=== PATIENT | female | born 1990 | race American Indian/Alaskan Native ===

== ENCOUNTER 2018-01-11 15:20 | Emergency (ER) | payer MEDICAID ==
[2018-01-11] MEDS ORDERED: NACL 0.9% 500 ML 500 ML IV ONE (15:46)
[2018-01-11] MEDS ORDERED: TYLENOL PO STA (15:46)
[2018-01-11 16:12] LABS: Basophils # (Auto) 0.1 K/mm3 (0.0-0.1); Basophils % (Auto) 0.7 % (0.0-1.8); Eosinophils % (Auto) 0.2 % (0.0-4.3); Hematocrit 39.3 % (30.3-42.9); Hemoglobin 13.1 gm/dl (10.1-14.3); Lymphocytes # (Auto) 0.6 K/mm3 (1.2-5.4); Lymphocytes % (Auto) 3.3 % (13.4-35.0); Mean Corpuscular HGB Conc 33 % (30-34); Mean Corpuscular Hemoglobin 32 pg (28-32); Mean Corpuscular Volume 96 fl (79-97); Monocytes # (Auto) 1.1 K/mm3 (0.0-0.8); Monocytes % (Auto) 6.2 % (0.0-7.3); Platelet Count 244 K/mm3 (140-440); Red Blood Count 4.08 M/mm3 (3.65-5.03); Red Cell Distribution Width 12.4 % (13.2-15.2)
[2018-01-11 16:22] LABS: INR 1.03 (0.87-1.13)
[2018-01-11 16:28] LABS: Alanine Aminotransferase 10 units/L (7-56); BUN/Creatinine Ratio 10; Blood Urea Nitrogen 10 mg/dL (7-17); Calcium 9.1 mg/dL (8.4-10.2); Hemolysis Index 3
[2018-01-11] MEDS ORDERED: NACL 0.9% 1000 ML IV ONE (16:51)
--- NOTE | 2018-01-11 17:15 | Emergency Department Report ---
HPI - General Chief Complaint: Fever Time Seen by Provider: 01/11/18 16:51 - HPI HPI: Room 22 The patient is a 27-year-old female presents with a chief complaint of abdominal pain. The patient states 2 days ago she felt dizzy so she drank water and felt better. This morning patient states she developed right lower quadrant abdominal pain and continued to feel dizzy. The patient states she felt cold and couldn't eat secondary to loss of appetite. The patient describes the pain as cramping in nature and intermittent. Patient denies fever , diarrhea or cough. Patient denies dysuria, hematuria or vaginal discharge. The patient states her last cycle occurred 01/03/2018 but was shorter than normal Location: Abdomen Duration: [See above] Quality: Cramping Severity: 05/18 Modifying factors: [see above] Context: [see above] Mode of transportation: [not driving] ED Past Medical Hx - Past Medical History Previous Medical History?: Yes Additional medical history: Vaginal delivery x 2 - Surgical History Past Surgical History?: Yes Additional Surgical History: Ectopic 2014 (patient cannot recall which side) - Family History Family history: no significant - Social History Smoking Status: Current Every Day Smoker (1/7 per day) Substance Use Type: None (denies illicit drug use), Alcohol (occasional) - Medications Home Medications: Home Medications Medication Instructions Recorded Confirmed Last Taken Type Ciprofloxacin HCl [Ciprofloxacin 500 mg PO BID #20 tablet 01/11/18 Unknown Rx TAB] HYDROcodone/APAP 5-325 [[place] 1 - 2 each PO Q6HR PRN #14 tablet 01/11/18 Unknown Rx 5/325] Ibuprofen [Motrin 800 MG tab] 800 mg PO Q8HR PRN #20 tablet 01/11/18 Unknown Rx Promethazine [Phenergan TAB] 25 mg PO Q6HR PRN #20 tab 01/11/18 Unknown Rx Promethazine [Phenergan] 25 mg MI Q6HR PRN #5 supp.rect 01/11/18 Unknown Rx ED Review of Systems ROS: Stated complaint: FEELING ILL FOR X2 DAYS Other details as noted in HPI Constitutional: denies: fever (none noted at home) Eyes: denies: eye pain ENT: denies: throat pain Respiratory: denies: cough Cardiovascular: denies: chest pain Gastrointestinal: abdominal pain. denies: diarrhea Genitourinary: denies: dysuria, hematuria, discharge Musculoskeletal: denies: back pain Neurological: other (dizziness). denies: headache Physical Exam - Physical Exam Vital Signs: Vital Signs 01/11/18 01/11/18 01/11/18 15:41 16:10 16:24 Temperature 103.1 F H Pulse Rate 100 H 86 Respiratory 22 24 Rate Blood Pressure 149/93 151/92 O2 Sat by Pulse 96 100 98 Oximetry 01/11/18 01/11/18 16:36 16:54 Temperature 100.2 F H Pulse Rate Respiratory 20 Rate Blood Pressure O2 Sat by Pulse Oximetry Physical Exam: GENERAL: The patient is well-developed well-nourished female lying on stretcher not appearing to be in acute distress. [] HEENT: Normocephalic. Atraumatic. Extraocular motions are intact. Patient has moist mucous membranes. NECK: Supple. Trachea midline CHEST/LUNGS: Clear to auscultation. There is no respiratory distress noted. HEART/CARDIOVASCULAR: Regular. There is no tachycardia. There is no gallop rub or murmur. ABDOMEN: Abdomen is soft, with discomfort to palpation in the right lower quadrant. There is no guarding. Patient has normal bowel sounds. There is no abdominal distention. SKIN: There is no rash. There is no edema. There is no diaphoresis. NEURO: The patient is awake, alert, and oriented. The patient is cooperative. The patient has normal speech MUSCULOSKELETAL: There is no CVA tenderness. There is no evidence of acute injury. ED Course Vital Signs 01/11/18 01/11/18 01/11/18 15:41 16:10 16:24 Temperature 103.1 F H Pulse Rate 100 H 86 Respiratory 22 24 Rate Blood Pressure 149/93 151/92 O2 Sat by Pulse 96 100 98 Oximetry 01/11/18 01/11/18 16:36 16:54 Temperature 100.2 F H Pulse Rate Respiratory 20 Rate Blood Pressure O2 Sat by Pulse Oximetry ED Medical Decision Making - Lab Data Result diagrams: 01/11/18 16:02 01/11/18 16:02 Laboratory Tests 01/11/18 01/11/18 01/11/18 16:02 16:02 16:02 WBC 17.8 H RBC 4.08 Hgb 13.1 Hct 39.3 MCV 96 MCH 32 MCHC 33 RDW 12.4 L Plt Count 244 Lymph % (Auto) 3.3 L Avery % (Auto) 6.2 Eos % (Auto) 0.2 Baso % (Auto) 0.7 Lymph # 0.6 L Avery # 1.1 H Eos # 0.0 Baso # 0.1 Seg Neutrophils % 89.6 H Seg Neutrophils # 15.9 H PT 14.0 INR 1.03 VBG pH Sodium 140 Potassium 3.6 Chloride 101.7 Carbon Dioxide 22 Anion Gap 20 BUN 10 Creatinine 1.0 Estimated GFR > 60 BUN/Creatinine Ratio 10 Glucose 158 H Lactic Acid Calcium 9.1 Total Bilirubin 0.60 AST 11 ALT 10 Alkaline Phosphatase 86 Total Protein 7.3 Albumin 4.0 Albumin/Globulin Ratio 1.2 HCG, Qual Urine Color Urine Turbidity Urine pH Ur Specific [place] Urine Protein Urine Glucose (UA) Urine Ketones Urine Blood Urine Nitrite Urine Bilirubin Urine Urobilinogen Ur Leukocyte Esterase Urine WBC (Auto) Urine RBC (Auto) U Epithel Cells (Auto) Urine Bacteria (Auto) Urine WBC Clumps Ur Transition Epith Cell Urine Mucus 01/11/18 01/11/18 01/11/18 16:02 16:02 16:44 WBC RBC Hgb Hct MCV MCH MCHC RDW Plt Count Lymph % (Auto) Avery % (Auto) Eos % (Auto) Baso % (Auto) Lymph # Avery # Eos # Baso # Seg Neutrophils % Seg Neutrophils # PT INR VBG pH 7.424 H Sodium Potassium Chloride Carbon Dioxide Anion Gap BUN Creatinine Estimated GFR BUN/Creatinine Ratio Glucose Lactic Acid 2.10 H* Calcium Total Bilirubin AST ALT Alkaline Phosphatase Total Protein Albumin Albumin/Globulin Ratio HCG, Qual Negative Urine Color Urine Turbidity Urine pH Ur Specific [place] Urine Protein Urine Glucose (UA) Urine Ketones Urine Blood Urine Nitrite Urine Bilirubin Urine Urobilinogen Ur Leukocyte Esterase Urine WBC (Auto) Urine RBC (Auto) U Epithel Cells (Auto) Urine Bacteria (Auto) Urine WBC Clumps Ur Transition Epith Cell Urine Mucus 01/11/18 01/11/18 16:45 16:45 WBC RBC Hgb Hct MCV MCH MCHC RDW Plt Count Lymph % (Auto) A[place] % (Auto) Eos % (Auto) Baso % (Auto) Lymph # Avery # Eos # Baso # Seg Neutrophils % Seg Neutrophils # PT INR VBG pH Sodium Potassium Chloride Carbon Dioxide Anion Gap BUN Creatinine Estimated GFR BUN/Creatinine Ratio Glucose Lactic Acid 1.20 Calcium Total Bilirubin AST ALT Alkaline Phosphatase Total Protein Albumin Albumin/Globulin Ratio HCG, Qual Urine Color Yellow Urine Turbidity Clear Urine pH 5.0 Ur Specific [place] 1.017 Urine Protein 100 mg/dl Urine Glucose (UA) Neg Urine Ketones Neg Urine Blood Lg Urine Nitrite Neg Urine Bilirubin Neg Urine Urobilinogen 4.0 Ur Leukocyte Esterase Lg Urine WBC (Auto) > 182.0 H Urine RBC (Auto) 112.0 U Epithel Cells (Auto) 9.0 Urine Bacteria (Auto) 2+ Urine WBC Clumps 2+ Ur Transition Epith Cell 1 Urine Mucus Few - EKG Data -: EKG Interpreted by Me EKG shows normal: sinus rhythm Rate: normal (94 bpm) - EKG Data When compared to previous EKG there are: previous EKG unavailable Interpretation: nonspecific ST-T wave peg (T wave inverted in leads 2, 3, V3) - Radiology Data Radiology results: report reviewed (CT abdomen and pelvis), image reviewed ( chest x-ray, CT abdomen and pelvis) interpreted by me: Chest x-ray-no focal infiltrates, no pneumothorax CT abdomen and pelvis (read by radiologist)-findings which may represent nonspecific postinflammatory change in the right kidney, including pyelonephritis or UTI. Correlate clinically. Findings which may represent functional cystic change in the left ovary. - Differential Diagnosis cystitis, pyelonephritis, appendicitis, ectopic , Critical care attestation.: If time is entered above; I have spent that time in minutes in the direct care of this critically ill patient, excluding procedure time. ED Disposition Clinical Impression: Pyelonephritis, Acute abdominal pain, Nausea Disposition: DC-01 TO HOME OR SELFCARE Is pt being admited?: No Does the pt Need Aspirin: No Condition: Stable Instructions: Urinary Tract Infection in Women (ED) Additional Instructions: Return to the emergency department immediately should you develop worsening symptoms, fever, inability to tolerate food or liquid or any other concerns. Prescriptions: Ciprofloxacin HCl [Ciprofloxacin TAB] 500 mg PO BID #20 tablet HYDROcodone/APAP 5-325 [[place] 5/325] 1 - 2 each PO Q6HR PRN #14 tablet PRN Reason: Pain Ibuprofen [Motrin 800 MG tab] 800 mg PO Q8HR PRN #20 tablet PRN Reason: Pain Promethazine [Phenergan TAB] 25 mg PO Q6HR PRN #20 tab PRN Reason: Nausea Promethazine [Phenergan] 25 mg MI Q6HR PRN #5 supp.rect PRN Reason: Vomiting Referrals: LUIGI GIRARD JR, MD [Staff Physician] - 3-5 Days (Dr. Girard is a primary physician. Please follow with him or your primary physician for further evaluation) Time of Disposition: 19:35
[2018-01-11] MEDS ORDERED: ROCEPHIN/NS 1 GM/50 ML 1 GM/50 ML BAG IV ONE (17:16)
[2018-01-11] MEDS ORDERED: MORPHINE IV ONE (17:20)
[2018-01-11] MEDS ORDERED: ZOFRAN IV ONE (17:20)
[2018-01-11 17:34] LABS: Bacteria,Urine 2+ /HPF (Negative); Bilirubin,Urine NEG (Negative); Blood,Urine LG (Negative); Color,Urine Yellow (Yellow); Mucus,Urine FEW /HPF
[2018-01-11 17:49] LABS: WBC,Urine > 182.0 /HPF (0.0-6.0)
[2018-01-11] MEDS ORDERED: cefTRIAXone 1 GM in NACL 0.9% 20 ML IV ONE (18:00)
[2018-01-11 18:41] VITALS: BP 135/82
--- NOTE | 2018-01-11 20:56 | XRay Report ---
FINAL REPORT EXAM: XR CHEST 1V AP HISTORY: possible Sepsis TECHNIQUE: Frontal portable examination of the chest PRIORS: None FINDINGS: There is no visible pulmonary consolidation, pleural effusion, or pneumothorax. Cardiac silhouette size is normal without vascular congestion. No visible acute displaced fracture in the regional skeleton. IMPRESSION: No acute cardiopulmonary disease in the visualized chest
--- NOTE | 2018-01-11 20:58 | Cat Scan Report ---
FINAL REPORT EXAM: CT ABDOMEN PELVIS W CON HISTORY: fever, right lower quadrant abdominal pain TECHNIQUE: Spiral CT scanning of the abdomen and pelvis after the uneventful administration of IV contrast. Multiplanar reformations. 100 mL Omnipaque IV. PRIORS: None. FINDINGS: Abdomen: Visualized lung bases grossly unremarkable. No radiopaque gallstones. Liver without significant abnormality. Spleen without significant abnormality. Pancreas without significant abnormality. Mildly heterogeneous enhancement pattern and striated nephrogram in the right renal upper pole, with some perinephric fat stranding. Prominent or mild right extrarenal pelvis, with wall enhancement in the right renal pelvis and proximal ureter. Multiple prominent for mildly enlarged lymph nodes in the right renal hilar region and along right retroperitoneum may be reactive. Left kidney grossly unremarkable. No intrarenal calculi, significant hydronephrosis or abnormal perinephric fluid collection. Adrenal glands without significant abnormality. Pelvis: Bowel grossly unremarkable. Appendix within normal limits. No significant free peritoneal fluid or discrete abscess. Abdominal aorta non-aneurysmal. Cystic focus in the left ovary measures approximately 3 cm. IMPRESSION: 1. Findings which may represent nonspecific postinflammatory change in the right kidney, including pyelonephritis or UTI. Correlate clinically. 2. Findings which may represent functional cystic change in the left ovary.
== END 2018-01-11 19:48 | disposition home or self-care (01) ==
LOC: ED 15:20
DX: N12 Tubulo-interstitial nephritis, not specified as acute or chronic (principal); R11.0 Nausea; R10.31 Right lower quadrant pain; F17.210 Nicotine dependence, cigarettes, uncomplicated
CPT/HCPCS: 36415; 71045; 74177; 80053; 81001; 82140; 82805; 84703; 85025; 85610; 87040; 87076; 87086; 87186; 93005; 93010; 96361; 96365; 96375; 99285; J0696; J2270; J2405; J7030; J7040; Q9967

== ENCOUNTER 2020-08-23 08:54 | Day surgery (SDC) | payer MEDICAID ==
[~2020-08-23 08:54] MED LIST: ACETAMINOPHEN 500 MG TAB PO SCH; CELECOXIB 200 MG CAP PO NR; GABAPENTIN 300 MG CAP PO NR; LACTATED RINGERS 1,000 ML IV SCH; MIDAZOLAM 2 MG/2 ML INJ IV NR
[2020-08-23] MEDS ORDERED: HYDROmorphone 1 MG/1 ML INJ IV PRN (09:53)
[2020-08-23] MEDS ORDERED: ONDANSETRON 4 MG/2 ML INJ IV PRN (09:53)
--- NOTE | 2020-08-23 09:54 | Anesthesia Consultation ---
Anesthesia Consult and Med Hx Date of service: 08/23/20 - Airway Anesthetic Teeth Evaluation: Poor ROM Head & Neck: Adequate Mental/Hyoid Distance: Adequate Mallampati Class: Class II Intubation Access Assessment: Probably Good - Pulmonary Exam CTA: Yes - Cardiac Exam Cardiac Exam: RRR - Pre-Operative Health Status ASA Pre-Surgery Classification: ASA2 Proposed Anesthetic Plan: General - Pulmonary Hx Smoking: Yes (<1/2 PPD) Hx Respiratory Symptoms: No - Cardiovascular System Hx Hypertension: Yes Hx Heart Attack/AMI: No Hx Percutaneous Transluminal Coronary Angioplasty (PTCA): No - Central Nervous System CVA: No - Endocrine Hx Renal Disease: No Hx Liver Disease: No Hx Insulin Dependent Diabetes: No Hx Non-Insulin Dependent Diabetes: No Hx Thyroid Disease: No - Other Systems Hx Obesity: No - Additional Comments Anesthesia Medical History Comments: No hx anesthetic complications.
--- NOTE | 2020-08-23 09:54 | Anesthesia Day of Surgery ---
Anesthesia Day of Surgery - Day of Surgery Patient Examined: Yes Patient H&P Reviewed: Yes Patient is NPO: Yes
[2020-08-23] MEDS ORDERED: GLYCOPYRROLATE 0.4 MG/2 ML INJ ONE (11:00)
[2020-08-23] MEDS ORDERED: NEOSTIGMINE 10MG/10 ML INJ MDV ONE (11:00)
[2020-08-23] MEDS ORDERED: hydrALAZINE 20 MG/1 ML INJ IV ONE (11:22)
[2020-08-23] MEDS ORDERED: LISINOPRIL 20 MG TAB PO ONE (11:30)
[2020-08-23] MEDS ORDERED: fentaNYL 100 MCG/2 ML INJ ONE (12:07)
[2020-08-23] MEDS ORDERED: propofoL 200 MG/20 ML VIAL IV ONE (12:07)
[2020-08-23] MEDS ORDERED: ROCURONIUM 50 MG/5 ML INJ IV ONE (12:07)
[2020-08-23] MEDS ORDERED: BUPIVACAINE/PF (0.5%) 5 MG/1 ML 30 ML VIAL INFILTRATI ONE ×2 (12:19→14:24)
[2020-08-23] MEDS ORDERED: ONDANSETRON 4 MG/2 ML INJ ONE (13:28)
[2020-08-23] MEDS ORDERED: ALBUTEROL 8.5 GM MDI INHALATION IH ONE (13:28)
[2020-08-23] MEDS ORDERED: KETOROLAC 30 MG/1 ML INJ ONE (13:28)
[2020-08-23] MEDS ORDERED: dexAMETHasone 20 MG/5 ML VIAL ONE (13:28)
[2020-08-23] MEDS ORDERED: LIDOCAINE MPF (2%) 20 MG/1 ML VIAL 5 ML ONE (13:29)
[2020-08-23] MEDS ORDERED: HYDROmorphone 1 MG/1 ML INJ ONE (13:36)
[2020-08-23] MEDS ORDERED: SODIUM CHLORIDE 0.9% IRR 1,500 ML BOTTLE IR ONE (13:36)
[2020-08-23] MEDS ORDERED: SODIUM CHLORIDE 0.9% IRRIG SOLN 2000 ML IR ONE (13:37)
[2020-08-23] MEDS ORDERED: hydrALAZINE 20 MG/1 ML INJ IV PRN (14:01)
--- NOTE | 2020-08-23 14:50 | Post Operative Note ---
Date of procedure: 08/23/20 Pre-op diagnosis: Left ovarian cyst and pelvic pain Post-op diagnosis: other (Patient with a large ovarian cyst that was either an old simple cyst or possibly a tubo-ovarian abscess. Suspect more likely that it was a simple cyst. Patient also with significant pelvic adhesions.) Findings: Patient had had a large left ovarian cyst as suspected by preoperative ultrasound. The fluid was dark babin in nature and the cyst wall appeared necrotic. The fluid was thin and did not appear thick and purulent though. I suspect this is an old simple cyst but it could be a tubo-ovarian abscess. As result patient will be sent home with antibiotics just in case and that fluid was sent for culture. The cyst itself was also significantly adhered to the left upper pelvic sidewall and anterior wall. On the posterior side patient had significant bowel and omental adhesions to it as well as the appendix. Patient also with some omental adhesions around the umbilical area. The uterus and right tube and ovary appeared normal except there were some filmy adhesions on the posterior side of both of those as well. Procedure: Indication:30-year-old with ultrasound findings noting over 7 cm ovarian cyst. Patient notes the pain has been worse recently but feels like she has had some discomfort for months. As result patient taken for laparoscopic left ovarian cystectomy and extensive lysis of adhesions. Please see findings above. Procedure: Patient taken the operating room and prepped and draped in usual fashion. Attention was first turned vaginally where single-tooth tenaculum was applied to the anterior lip of the cervix and an acorn uterine manipulator was placed. Attention was now turned abdominally where a 5 mm incision was made in the umbilicus. Veres needle then placed in the abdominal cavity. The abdomen was appropriately insufflated with CO2 gas. Veres needle removed and the 5 mm trocar was placed in abdominal cavity. Placement confirmed with the camera. 2 more 5 mm trochars were placed. One was in the right lower quadrant about 2 fingerbreadths superior and medial to the ASIS. The other one was in the suprapubic region about 3 to 4 cm superior to the pubic symphysis because of the internal scarring that she had. At this point attention was first turned to the large band of omental adhesions that she had over the pelvic region which were lysed with the LigaSure device. At this point attention was turned to the bowel adhesions which were able to be from the ovarian cyst using the blunt probe and gentle dissection. Once this was done, the posterior side of the cyst was able to be freed up. At this point ovarian cystotomy was performed and the fluid was suctioned out. It was a large single cavity cyst. Because the lining of the cyst was so necrotic there was no good plane to peel out the cyst wall. This the cyst wall was irrigated multiple times. At this point, all the fluid from the cyst had been suctioned out and the cyst was deflated. Attention was then turned to its attachments to the pelvic and anterior peritoneal sidewall. These were also dissected off using the gentle blunt probe. At this point the cyst was free and all directions. At this point, a large portion of the cyst was amputated from the ovary using the LigaSure device. A little bit of omentum was also in the specimen. The suprapubic 5 mm port was converted to a 12 mm port and the Endobag was placed and used to remove the ovarian cyst specimen. This point the abdomen was desufflated and good hemostasis noted. Abdomen was reinsufflated. The 12 mm port was closed using 0 Vicryl and the Lux Leal device. Good hemostasis noted throughout at this point and the procedure was concluded. At this point the abdomen was fully desufflated. Trochars were removed. Trocar sites were closed with 4-0 Vicryl in a subcuticular fashion followed by Marcaine. The acorn uterine manipulator and single-tooth tenaculum were removed. Procedure concluded at this point. Patient tolerated the procedure well. All instrument lap counts were correct. Patient taken to the recovery room in stable condition. Anesthesia: GETA Surgeon: ISAIAS MURRAY Estimated blood loss: minimal Pathology: list (left ovarian cyst (with some omentum in the specimen)) Specimen disposition: to lab Condition: stable Disposition: PACU
--- NOTE | 2020-08-23 15:00 | Short Stay Summary ---
Short Stay Documentation Date of service: 08/23/20 Narrative H&P: On 08/23, patient had laparoscopic left ovarian cystectomy and extensive lysis of adhesions. Please see operative report and H&P for details. The surgery went well. It is suspected she had an old simple cyst but since the fluid was concerning in color, the fluid was sent for culture. In addition patient sent home with doxycycline twice daily for a week. Patient vies to follow-up in the office 2 weeks postop. - History H&P: obtained from office - Allergies and Medications Current Medications: Allergies No Known Allergies Allergy (Verified 08/23/20 14:15) Home Medications Medication Instructions Recorded Confirmed Last Taken Type lisinopriL [Zestril TAB] 20 mg PO QDAY 08/20/20 08/23/20 08/22/20 08:00 History Doxycycline Hyclate 100 mg PO BID #14 tablet. 08/23/20 Unknown Rx Ibuprofen [Motrin 800 MG tab] 800 mg PO Q8HR PRN #30 tablet 08/23/20 Unknown Rx oxyCODONE /ACETAMINOPHEN [Percocet 1 tab PO Q4HR PRN #30 tab 08/23/20 Unknown Rx 5/325] Active Medications Acetaminophen (Acetaminophen 500 Mg Tab) 1,000 mg PO PREOP ALMAS Stop: 08/23/20 23:59 Last Admin: 08/23/20 10:55 Dose: 1,000 mg Documented by: Celecoxib (Celecoxib 200 Mg Cap) 200 mg PO PREOP NR Stop: 08/23/20 23:59 Last Admin: 08/23/20 10:55 Dose: 200 mg Documented by: Gabapentin (Gabapentin 300 Mg Cap) 300 mg PO PREOP NR Stop: 08/23/20 23:59 Last Admin: 08/23/20 10:55 Dose: 300 mg Documented by: Hydralazine HCl (Hydralazine 20 Mg/1 Ml Inj) 10 mg IV Q20M PRN PRN Reason: Hypertension Hydromorphone HCl (Hydromorphone 1 Mg/1 Ml Inj) 0.5 mg IV Q10MIN PRN PRN Reason: Pain , Severe (7-10) Stop: 08/23/20 23:00 Lactated Ringer's (Lactated Ringers) 1,000 mls @ 100 mls/hr IV DIRECT ALMAS Stop: 08/23/20 23:59 Last Admin: 08/23/20 11:00 Dose: 100 mls/hr Documented by: Midazolam HCl (Midazolam 2 Mg/2 Ml Inj) 2 mg IV PREOP NR Stop: 08/23/20 23:59 Last Admin: 08/23/20 12:10 Dose: 2 mg Documented by: Ondansetron HCl (Ondansetron 4 Mg/2 Ml Inj) 4 mg IV ONCE PRN PRN Reason: Nausea And Vomiting Stop: 08/23/20 16:00 - Disposition Condition at discharge: Stable Disposition: DC-01 TO HOME OR SELFCARE Short Stay Discharge Plan Follow up with: PRIMARY CARE,MD [Primary Care Provider] - 14 Days Prescriptions: Doxycycline Hyclate 100 mg PO BID #14 tablet. Ibuprofen [Motrin 800 MG tab] 800 mg PO Q8HR PRN #30 tablet PRN Reason: Pain , Severe (7-10) oxyCODONE /ACETAMINOPHEN [Percocet 5/325] 1 tab PO Q4HR PRN #30 tab PRN Reason: Pain , Severe (7-10)
[2020-08-23 16:03] VITALS: BP 158/75
[2020-08-23] MEDS ORDERED: oxyCODONE /ACETAMINOPHEN 5-325MG TAB PO ONE (16:13)
--- NOTE | 2020-08-23 16:33 | Post Anesthesia Evaluation ---
- Post Anesthesia Evaluation Patient Participated: Yes Airway Patent: Yes Stable Respiratory Function: Yes Nausea/Vomiting: No Temp > 96.8F: Yes Pain Manageable: Yes Adequeate Hydration: Yes Anesthesia Complications: No
== END 2020-08-23 16:40 | disposition home or self-care (01) ==
LOC: OR 08:54
PROVIDERS: ATTEND Obstetrics & Gynecology
DX: N83.202 Unspecified ovarian cyst, left side (principal); R10.2 Pelvic and perineal pain; I10 Essential (primary) hypertension; F17.210 Nicotine dependence, cigarettes, uncomplicated; Z79.899 Other long term (current) drug therapy; Z72.89 Other problems related to lifestyle; Z98.890 Other specified postprocedural states; Z90.721 Acquired absence of ovaries, unilateral
CPT/HCPCS: 58662; 81025; 87116; 88305; 88342; A4217; J0360; J1100; J1170; J1885; J2250; J2405; J2704; J2710; J3010; J7120

== ENCOUNTER 2021-11-19 14:13 | Emergency (ER) | payer MEDICAID ==
--- NOTE | 2021-11-19 15:37 | Ultrasound Report ---
FIRSTTRIMESTER OBSTETRIC ULTRASOUND HISTORY: Abdominal pain during , rule out ectopic COMPARISON: None. TECHNIQUE: Routine transabdominal OB ultrasound performed. FINDINGS: The uterus is borderline enlarged measuring 9.0 x 5.6 x 5.2 cm. The endometrial stripe measures 16 mm . No uterine mass. No intrauterine is identified. In the left adnexa, between the uterus and left ovary a gestational sac containing a pole is id entified. Hilliard-rump length measures 1.8 cm which correlates with an 8 week 2 day . No heart rate could be demonstrated on ultrasound interrogation. The right ovary measures 2.4 x 1.1 x 0.9 cm. The left ovary measures 3.1 x 3.0 x 2.9 cm. There is a s lightly complex cyst in the left ovary measuring 1.4 cm. No significant free pelvic fluid is demonstrated. IMPRESSION A nonviable left ectopic is identified as described. CRITICAL RESULT: Time of Discovery (PRECISION PRINTING WORKER/CDT): 1425 hours Time of Communication (PRECISION PRINTING WORKER/CDT): 1430 hours Licensed Practitioner Receiving Report: Dr. Gaston Read-Back Performed: Yes. Signer Name: Lewis Wayne Jr, MD Signed: 11/19/2021 3:32 PM Workstation Name: [id number]
--- NOTE | 2021-11-19 15:52 | Emergency Department Report ---
ED HPI - General Chief complaint: OB/Uterine Contractions Stated complaint: 8WKS (ECTOPIC ) REF BY [facility] Time Seen by Provider: 11/19/21 14:56 Source: patient Mode of arrival: Ambulatory Limitations: No Limitations - History of Present Illness Initial comments: 31-year-old female approximately 8 weeks presents to the hospital with her PMD for possible left-sided ectopic after scheduled SPA THERAPIST visit. This is patient's fifth with history of 1 miscarriage, 2 living children, history of a right sided ectopic requiring surgical removal. Patient denies abdominal pain or vaginal bleeding and left ectopic with diagnosed during routine visit. [facility] is [facility] - Related Data Home Medications Medication Instructions Recorded Confirmed Last Taken lisinopriL [Zestril TAB] 20 mg PO QDAY 08/20/20 08/23/20 08/22/20 08:00 Previous Rx's Medication Instructions Recorded Last Taken Type Doxycycline Hyclate 100 mg PO BID #14 tablet. 08/23/20 Unknown Rx Ibuprofen [Motrin 800 MG tab] 800 mg PO Q8HR PRN #30 tablet 08/23/20 Unknown Rx oxyCODONE /ACETAMINOPHEN [Percocet 1 tab PO Q4HR PRN #30 tab 08/23/20 Unknown Rx 5/325] Allergies Allergy/AdvReac Type Severity Reaction Status Date / Time No Known Allergies Allergy Verified 11/19/21 19:59 ED Review of Systems ROS: Stated complaint: 8WKS (ECTOPIC ) REF BY [facility] Other details as noted in HPI Comment: All other systems reviewed and negative ED Past Medical Hx - Past Medical History Hx Hypertension: Yes Hx Heart Attack/AMI: No Hx Liver Disease: No Hx Renal Disease: No Additional medical history: Vaginal delivery x 2 - Surgical History Additional Surgical History: Ectopic 2014 (patient cannot recall which side) - Social History Smoking Status: Current Every Day Smoker - Medications Home Medications: Home Medications Medication Instructions Recorded Confirmed Last Taken Type lisinopriL [Zestril TAB] 20 mg PO QDAY 08/20/20 08/23/20 08/22/20 08:00 History Doxycycline Hyclate 100 mg PO BID #14 tablet. 08/23/20 Unknown Rx Ibuprofen [Motrin 800 MG tab] 800 mg PO Q8HR PRN #30 tablet 08/23/20 Unknown Rx oxyCODONE /ACETAMINOPHEN [Percocet 1 tab PO Q4HR PRN #30 tab 08/23/20 Unknown Rx 5/325] ED Physical Exam - General Limitations: No Limitations - Other Other exam information: General: No acute distress Head: Atraumatic Eyes: normal appearance ENT: Moist mucous membranes Neck: Normal appearance, no midline tenderness Chest: Clear to auscultation bilaterally CV: Regular rate and rhythm Abdomen: Soft, normal bowel sounds, nontender, nondistended, no rebound or guarding Back: Normal inspection Extremity: Normal inspection, full range of motion Neuro: Alert O x 3, no facial asymmetry, speech clear, no gross motor sensory deficit Psych: Appropriate behavior Skin: No rash ED Course Vital Signs 11/19/21 11/19/21 11/19/21 14:36 15:56 16:01 Temperature 98.8 F Pulse Rate 79 Respiratory 18 Rate Blood Pressure 156/87 129/68 O2 Sat by Pulse 98 99 99 Oximetry 11/19/21 11/19/21 11/19/21 16:15 16:31 16:45 Temperature Pulse Rate Respiratory Rate Blood Pressure 119/66 116/73 125/66 O2 Sat by Pulse 99 97 97 Oximetry 11/19/21 11/19/21 17:01 17:58 Temperature 98.0 F Pulse Rate 78 Respiratory 18 Rate Blood Pressure 123/71 O2 Sat by Pulse 98 98 Oximetry - Consultations Consultation #1: 11/19/21 15:51 case d/w Dr Carr regarding US result + left ectopic, awaiting labs to determine if pt is a Methotrexate candidate 11/19/21 17:55 Dr Fitzpatrick recommends admission for surgery to remove left ectopic based on quant Consultation #2: 11/19/21 20:30 I received a call from Dr. Corona who will come to evaluate patient and place admission orders ED Medical Decision Making - Lab Data Result diagrams: 11/19/21 15:18 11/19/21 15:18 Lab Results 11/19/21 11/19/21 11/19/21 Range/Units 15:18 15:18 15:18 WBC 11.3 H (4.5-11.0) K/mm3 RBC 3.71 (3.65-5.03) M/mm3 Hgb 12.3 (10.1-14.3) gm/dl Hct 35.9 (30.3-42.9) % MCV 97 (79-97) fl MCH 33 H (28-32) pg MCHC 34 (30-34) % RDW 12.5 L (13.2-15.2) % Plt Count 261 (140-440) K/mm3 Lymph % (Auto) 17.3 (13.4-35.0) % [place] % (Auto) 6.3 (0.0-7.3) % Eos % (Auto) 1.1 (0.0-4.3) % Baso % (Auto) 0.3 (0.0-1.8) % Lymph # (Auto) 1.9 (1.2-5.4) K/mm3 Dawson # (Auto) 0.7 (0.0-0.8) K/mm3 Eos # (Auto) 0.1 (0.0-0.4) K/mm3 Baso # (Auto) 0.0 (0.0-0.1) K/mm3 Seg Neutrophils % 75.0 H (40.0-70.0) % Seg Neutrophils # 8.5 H (1.8-7.7) K/mm3 Sodium 136 L (137-145) mmol/L Potassium 4.0 (3.6-5.0) mmol/L Chloride 97.4 L (98-107) mmol/L Carbon Dioxide 24 (22-30) mmol/L Anion Gap 19 mmol/L BUN 11 (7-17) mg/dL Creatinine 0.7 (0.6-1.2) mg/dL Estimated GFR > 60 ml/min BUN/Creatinine Ratio 16 % Glucose 89 (65-100) mg/dL Calcium 10.7 H (8.4-10.2) mg/dL Total Bilirubin 0.20 (0.1-1.2) mg/dL AST 15 (5-40) units/L ALT 17 (7-56) units/L Alkaline Phosphatase 77 (35-129) units/L Total Protein 7.8 (6.3-8.2) g/dL Albumin 4.3 (3.9-5) g/dL Albumin/Globulin Ratio 1.2 % HCG, Quant 62302 H (0-4) mIU/mL Urine Color (Yellow) Urine Turbidity (Clear) Urine pH (5.0-7.0) Ur Specific [place] (1.003-1.030) Urine Protein (Negative) mg/dL Urine Glucose (UA) (Negative) mg/dL Urine Ketones (Negative) mg/dL Urine Blood (Negative) Urine Nitrite (Negative) Urine Bilirubin (Negative) Urine Urobilinogen (<2.0) mg/dL Ur Leukocyte Esterase (Negative) Urine WBC (Auto) (0.0-6.0) /HPF Urine RBC (Auto) (0.0-6.0) /HPF U Epithel Cells (Auto) (0-13.0) /HPF Hyaline Casts /LPF Urine Mucus /HPF Blood Type Antibody Screen 11/19/21 11/19/21 Range/Units 15:18 Unknown WBC (4.5-11.0) K/mm3 RBC (3.65-5.03) M/mm3 Hgb (10.1-14.3) gm/dl Hct (30.3-42.9) % MCV (79-97) fl MCH (28-32) pg MCHC (30-34) % RDW (13.2-15.2) % Plt Count (140-440) K/mm3 Lymph % (Auto) (13.4-35.0) % Dawson % (Auto) (0.0-7.3) % Eos % (Auto) (0.0-4.3) % Baso % (Auto) (0.0-1.8) % Lymph # (Auto) (1.2-5.4) K/mm3 Dawson # (Auto) (0.0-0.8) K/mm3 Eos # (Auto) (0.0-0.4) K/mm3 Baso # (Auto) (0.0-0.1) K/mm3 Seg Neutrophils % (40.0-70.0) % Seg Neutrophils # (1.8-7.7) K/mm3 Sodium (137-145) mmol/L Potassium (3.6-5.0) mmol/L Chloride (98-107) mmol/L Carbon Dioxide (22-30) mmol/L Anion Gap mmol/L BUN (7-17) mg/dL Creatinine (0.6-1.2) mg/dL Estimated GFR ml/min BUN/Creatinine Ratio % Glucose (65-100) mg/dL Calcium (8.4-10.2) mg/dL Total Bilirubin (0.1-1.2) mg/dL AST (5-40) units/L ALT (7-56) units/L Alkaline Phosphatase (35-129) units/L Total Protein (6.3-8.2) g/dL Albumin (3.9-5) g/dL Albumin/Globulin Ratio % HCG, Quant (0-4) mIU/mL Urine Color Yellow (Yellow) Urine Turbidity Clear (Clear) Urine pH 5.0 (5.0-7.0) Ur Specific [place] 1.019 (1.003-1.030) Urine Protein 100 mg/dl (Negative) mg/dL Urine Glucose (UA) Neg (Negative) mg/dL Urine Ketones Neg (Negative) mg/dL Urine Blood Mod (Negative) Urine Nitrite Neg (Negative) Urine Bilirubin Neg (Negative) Urine Urobilinogen < 2.0 (<2.0) mg/dL Ur Leukocyte Esterase Tr (Negative) Urine WBC (Auto) 11.0 H (0.0-6.0) /HPF Urine RBC (Auto) 30.0 (0.0-6.0) /HPF U Epithel Cells (Auto) 11.0 (0-13.0) /HPF Hyaline Casts 1 /LPF Urine Mucus Few /HPF Blood Type A POSITIVE Antibody Screen Negative - Radiology Data Radiology results: report reviewed FIRSTTRIMESTER OBSTETRIC ULTRASOUND HISTORY: Abdominal pain during , rule out ectopic COMPARISON: None. TECHNIQUE: Routine transabdominal OB ultrasound performed. FINDINGS: The uterus is borderline enlarged measuring 9.0 x 5.6 x 5.2 cm. The endometrial stripe measures 16 mm. No uterine mass. No intrauterine is identified. In the left adnexa, between the uterus and left ovary a gestational sac containing a pole is identified. [place]-rump length measures 1.8 cm which correlates with an 8 week 2 day . No heart rate could be demonstrated on ultrasound interrogation. The right ovary measures 2.4 x 1.1 x 0.9 cm. The left ovary measures 3.1 x 3.0 x 2.9 cm. There is a slightly complex cyst in the left ovary measuring 1.4 cm. No significant free pelvic fluid is demonstrated. IMPRESSION A nonviable left ectopic is identified as described. - Medical Decision Making 31-year-old female presents to the hospital with left-sided ectopic . After ED evaluation and SPA THERAPIST consultation it was determined that she requires admission for surgical ectopic removal. Patient does not have any clinical or imaging signs of rupture Critical Care Time: No Critical care attestation.: If time is entered above; I have spent that time in minutes in the direct care of this critically ill patient, excluding procedure time. ED Disposition Clinical Impression: Ectopic of left ovary Disposition: 09 ADMITTED INPATIENT Is pt being admited?: Yes Condition: Stable Time of Disposition: 17:57 (Dr fitzpatrick)
[2021-11-19 16:45] LABS: Basophils % (Auto) 0.3 % (0.0-1.8); Eosinophils # (Auto) 0.1 K/mm3 (0.0-0.4); Eosinophils % (Auto) 1.1 % (0.0-4.3); Hematocrit 35.9 % (30.3-42.9); Hemoglobin 12.3 gm/dl (10.1-14.3); Lymphocytes # (Auto) 1.9 K/mm3 (1.2-5.4); Lymphocytes % (Auto) 17.3 % (13.4-35.0); Mean Corpuscular HGB Conc 34 % (30-34); Mean Corpuscular Volume 97 fl (79-97); Monocytes # (Auto) 0.7 K/mm3 (0.0-0.8); Monocytes % (Auto) 6.3 % (0.0-7.3); Platelet Count 261 K/mm3 (140-440); Red Blood Count 3.71 M/mm3 (3.65-5.03); Red Cell Distribution Width 12.5 % (13.2-15.2)
[2021-11-19 16:54] LABS: Bilirubin,Urine NEG (Negative); Blood,Urine MOD (Negative); Color,Urine Yellow (Yellow); Hyaline Casts,Urine 1 /LPF; Mucus,Urine FEW /HPF; Urobilinogen,Urine < 2.0 mg/dL (<2.0)
[2021-11-19 17:06] LABS: Alanine Aminotransferase 17 units/L (7-56); Albumin 4.3 g/dL (3.9-5); Blood Urea Nitrogen 11 mg/dL (7-17); Calcium 10.7 mg/dL (8.4-10.2); Hemolysis Index 3
[2021-11-19 17:34] LABS: BUN/Creatinine Ratio 16
[2021-11-19] MEDS ORDERED: propofoL 200 MG/20 ML VIAL IV ONE (19:04)
[2021-11-19] MEDS ORDERED: HYDROmorphone 1 MG/1 ML INJ ONE (19:04)
--- NOTE | 2021-11-19 19:24 | Anesthesia Consultation ---
Anesthesia Consult and Med Hx Date of service: 11/19/21 - Airway Anesthetic Teeth Evaluation: Poor (some missing teeth) ROM Head & Neck: Adequate Mental/Hyoid Distance: Adequate Mallampati Class: Class II Intubation Access Assessment: Probably Good - Pre-Operative Health Status ASA Pre-Surgery Classification: ASA2 Proposed Anesthetic Plan: General - Pulmonary Hx Smoking: Yes (<1/2 PPD) Hx Respiratory Symptoms: No - Cardiovascular System Hx Hypertension: Yes (on Lisinopril) Hx Heart Attack/AMI: No Hx Percutaneous Transluminal Coronary Angioplasty (PTCA): No - Central Nervous System CVA: No Hx Psychiatric Problems: No - Endocrine Hx Renal Disease: No Hx Liver Disease: No Hx Insulin Dependent Diabetes: No Hx Non-Insulin Dependent Diabetes: No Hx Thyroid Disease: No - Other Systems Hx Alcohol Use: Yes (Occas) Hx Substance Use: Yes (marijuana daily) Hx Cancer: No Hx Obesity: No - Additional Comments Anesthesia Medical History Comments: left ectopic
--- NOTE | 2021-11-19 19:25 | Anesthesia Day of Surgery ---
Anesthesia Day of Surgery - Day of Surgery Patient Examined: Yes Patient H&P Reviewed: Yes Patient is NPO: Yes (patient had turkey sandwich @11AM)
--- NOTE | 2021-11-19 19:29 | History and Physical Report ---
History of Present Illness Date of examination: 11/19/21 Date of admission: 11/19/21 Chief complaint: Sent from office. US showed left ectopic History of present illness: 31 yo sent from office secondary to left ectopic noted on US measing 3.8cm. Pt. denies vaginal bleeding or abdominal pain. Past History Past Medical History: hypertension Past Surgical History: other (cystectomy (laparoscopic in 2020), Right salpingectomy - ectopic - 2014) Family/Genetic History: none Social history: no significant social history - Obstetrical History : 5 Para: 2 Spontaneous Abortions: 1 Number of Living Children: 2 Medications and Allergies Allergies Allergy/AdvReac Type Severity Reaction Status Date / Time No Known Allergies Allergy Verified 08/23/20 14:15 Home Medications Medication Instructions Recorded Confirmed Last Taken Type lisinopriL [Zestril TAB] 20 mg PO QDAY 08/20/20 08/23/20 08/22/20 08:00 History Doxycycline Hyclate 100 mg PO BID #14 tablet. 08/23/20 Unknown Rx Ibuprofen [Motrin 800 MG tab] 800 mg PO Q8HR PRN #30 tablet 08/23/20 Unknown Rx oxyCODONE /ACETAMINOPHEN [Percocet 1 tab PO Q4HR PRN #30 tab 08/23/20 Unknown Rx 5/325] Review of Systems All systems: negative - Vital Signs Vital signs: Vital Signs Temp Pulse Resp BP Pulse Ox 98.8 F 79 18 156/87 98 11/19/21 14:36 11/19/21 14:36 11/19/21 14:36 11/19/21 14:36 11/19/21 14:36 Temp Pulse Resp BP Pulse Ox 98.8 F 79 18 156/87 98 11/19/21 14:36 11/19/21 14:36 11/19/21 14:36 11/19/21 14:36 11/19/21 14:36 - Physical Exam Cardiovascular: Regular rate Lungs: Positive: Clear to auscultation Abdomen: Positive: normal appearance Vulva: both: normal Vagina: Positive: normal moisture Uterus: Positive: other (unable to palpate) Anus/Rectum: Positive: normal perianal skin Extremities: Positive: normal Results Result Diagrams: 11/19/21 15:18 11/19/21 15:18 Abnormal lab results 11/19/21 11/19/21 11/19/21 Range/Units 15:18 15:18 15:18 WBC 11.3 H (4.5-11.0) K/mm3 MCH 33 H (28-32) pg RDW 12.5 L (13.2-15.2) % Seg Neutrophils % 75.0 H (40.0-70.0) % Seg Neutrophils # 8.5 H (1.8-7.7) K/mm3 Sodium 136 L (137-145) mmol/L Chloride 97.4 L (98-107) mmol/L Calcium 10.7 H (8.4-10.2) mg/dL HCG, Quant 53428 H (0-4) mIU/mL Urine WBC (Auto) (0.0-6.0) /HPF 11/19/21 Range/Units Unknown WBC (4.5-11.0) K/mm3 MCH (28-32) pg RDW (13.2-15.2) % Seg Neutrophils % (40.0-70.0) % Seg Neutrophils # (1.8-7.7) K/mm3 Sodium (137-145) mmol/L Chloride (98-107) mmol/L Calcium (8.4-10.2) mg/dL HCG, Quant (0-4) mIU/mL Urine WBC (Auto) 11.0 H (0.0-6.0) /HPF All other labs normal. Assessment and Plan A Left ectopic Pt. hemodynically stable Elevated Beta HCG H/o right ectopic P Surgical candidate secondary to elevated Beta HCG D/w patient. Pt. agrees to surgical procedure Informed consent obtained
[2021-11-19 19:56] VITALS: BP 123/71
--- NOTE | 2021-11-19 23:01 | Event Note ---
Date: 11/19/21 CHIEF COMPLAINT: Left ectopic HISTORY OF PRESENT ILLNESS: 31-year-old at 12-4/7 weeks gestation went to her routine visit at [facility] today and had an ultrasound that revealed no intrauterine with a suspected left ectopic . She was sent to the emergency department today for further evaluation management. In the emergency department today, she had a pelvic ultrasound that confirmed that there was no intrauterine and there was a left adnexal mass consistent with an ectopic . The ectopic had no cardiac activity. There was no free fluid in the cul-de-sac. The patient was hemodynamically stable. She denied pelvic pain or bleeding. The patient was seen by the on-call physician. She was offered surgical management with left salpingectomy. The patient consented to this. Upon further questioning, the patient has a history of a laparoscopic right salpingectomy performed in 2014 secondary to ectopic . Hence, performing a left salpingectomy today would render her sterile. The patient was counseled regarding this. Alternatively, since the hCG level was >3,000 IU without evidence of rupture of the fallopian tube, the patient was offered intramuscular methotrexate with a 2 dose regimen. The patient was counseled that medical treatment with methotrexate for ectopic has comparable efficacy to surgery with similar outcomes. The patient had no contraindications to methotrexate because she was hemodynamically stable, had no evidence of an intrauterine , had no signs or symptoms of impending or ongoing rupture of ectopic mass, had no clinically important abnormalities and baseline hematologic/renal/hepatic laboratory values, had a medical condition such as immunodeficiency/active pulmonary disease/peptic ulcer disease, had no hypersensitivity methotrexate, and is not breast-feeding. After verbalizing understanding of the risks/alternatives/benefits of both laparoscopic left salpingectomy vs. methotrexate (2 dose regimen), the patient elected to have methotrexate (2 dose regimen) as treatment. She declined laparoscopic left salpingectomy at this time. ALLERGIES: NKDA MEDICATIONS: 1.) Losartan 2.) vitamins 3.) Vitamin D PAST MEDICAL HISTORY: 1.) Hypertension PAST SURGICAL HISTORY: 1.) Right salpingectomy (2014) 2.) Laparoscopic ovarian cystectomy (2020) SOCIAL HISTORY: 1.) The patient has a history of tobacco use (cigarette use, but quit when she found out she was ). 2.) The patient reports social alcohol use (but quit when she found out she was ). 3.) The patient denies drug use. FAMILY HISTORY: Noncontributory PAST GYNECOLOGIC HISTORY: Menarche at age 16. Menses are usually regular. Menses last 5 days long. She denies STDs, abnormal Pap smears, fibroids, or endometriosis. However, she reports a history of an ovarian cyst that was surgically removed in 2020. Last menstrual period was August 22, 2021. PAST OBSTETRIC HISTORY: . 2 normal spontaneous vaginal deliveries at term. One ectopic that was surgically removed. One spontaneous miscarriage. PHYSICAL EXAM: HEENT= normocephalic and atraumatic CV= regular rate LUNGS= normal respiratory effort ABDOMEN= soft and nontender without rebound tenderness EXTREMITIES= no clubbing, cyanosis, or edema PELVIC= no adnexal tenderness LABS: CBC and CMP were reviewed. B-hCG= 32,329 RADIOLOGY: Pelvic ultrasound= nonviable left ectopic IMPRESSION: Left ectopic PLAN: 1.) Methotrexate 96 mg IM x1 (dose #1) was administered in the E.R. today. 2.) She was advised to return to the E.R. on November 22, 2021 for Methotrexate 96 mg IM x1 (dose #2). 3.) Thereafter, the patient should [facility] November 25, 2021 for a repeat B-hCG. If that B-hCG has a >=15% decrease compared to the B-hCG results from today (i.e. if the B-hCG is <=27,479), then the treatment is working with no further injections of methotrexate needed. Thereafter weekly B- hCG surveillance is needed. 4.) If there is not a 15% decline, then Methotrexate 96 mg IM x1 (dose #3) is needed. Thereafter, a repeat B-hCG level is to be drawn on November 28, 2021 to evaluate for a >= 15% decrease. 5.) The patient was handed a document with detailed instructions of the above as well.
== END 2021-11-19 23:53 | disposition home or self-care (01) ==
LOC: ED 14:13
DX: O00.202 Left ovarian pregnancy without intrauterine pregnancy (principal); I10 Essential (primary) hypertension; F17.200 Nicotine dependence, unspecified, uncomplicated; Z3A.01 Less than 8 weeks gestation of pregnancy
CPT/HCPCS: 36415; 76801; 80053; 81001; 84702; 85025; 86850; 86900; 86901; 87086; 96372; 99284; J9260; J7120; J1170; J2704

== ENCOUNTER 2021-11-22 08:41 | Emergency (ER) | payer MEDICAID ==
[2021-11-22 09:26] VITALS: BP 135/81
--- NOTE | 2021-11-22 14:46 | Emergency Department Report ---
ED Recheck HPI - General Chief Complaint: Medical Clearance Stated Complaint: SECOND DOSE OF METHOTREXATE Time Seen by Provider: 11/22/21 13:55 Source: patient Mode of arrival: Ambulatory Limitations: No Limitations - History of Present Illness Initial Comments: 31-year-old black female presents to the emergency department for second methotrexate shot. Per previous note, patient was seen here on November 19 and diagnosed with ectopic . She went to the OR with [facility] did not receive first methotrexate shot. Per the [facility]'s note, patient was advised to return to the emergency department on today to receive her second methotrexate shot. Patient denies abdominal pain and bleeding at this time. No acute distress noted. Complaint: other (Second methotrexate shot) Returns Today for: other (Medication) Symptoms Since Prior Visit: no new symptoms Context: other (Planned follow-up for medication.) Associated Symptoms: none - Related Data Home Medications Medication Instructions Recorded Confirmed Last Taken lisinopriL [Zestril TAB] 20 mg PO QDAY 08/20/20 08/23/20 08/22/20 08:00 Previous Rx's Medication Instructions Recorded Last Taken Type Doxycycline Hyclate 100 mg PO BID #14 tablet. 08/23/20 Unknown Rx Ibuprofen [Motrin 800 MG tab] 800 mg PO Q8HR PRN #30 tablet 08/23/20 Unknown Rx oxyCODONE /ACETAMINOPHEN [Percocet 1 tab PO Q4HR PRN #30 tab 08/23/20 Unknown Rx 5/325] Allergies Allergy/AdvReac Type Severity Reaction Status Date / Time No Known Allergies Allergy Verified 11/19/21 19:59 ED Review of Systems ROS: Stated complaint: SECOND DOSE OF METHOTREXATE Other details as noted in HPI Comment: All other systems reviewed and negative Constitutional: denies: chills, fever ENT: denies: congestion Respiratory: denies: cough, shortness of breath Cardiovascular: denies: chest pain, palpitations Gastrointestinal: denies: abdominal pain, nausea, vomiting, diarrhea, hematemesis, melena, hematochezia Genitourinary: denies: urgency, dysuria, frequency, hematuria, discharge, abnormal menses Musculoskeletal: denies: back pain Skin: denies: rash, lesions Neurological: denies: headache, weakness ED Past Medical Hx - Past Medical History Hx Hypertension: Yes Hx Heart Attack/AMI: No Hx Liver Disease: No Hx Renal Disease: No Additional medical history: Vaginal delivery x 2 - Surgical History Additional Surgical History: Ectopic 2014 (patient cannot recall which side) - Social History Smoking Status: Current Every Day Smoker - Medications Home Medications: Home Medications Medication Instructions Recorded Confirmed Last Taken Type lisinopriL [Zestril TAB] 20 mg PO QDAY 08/20/20 08/23/20 08/22/20 08:00 History Doxycycline Hyclate 100 mg PO BID #14 tablet. 08/23/20 Unknown Rx Ibuprofen [Motrin 800 MG tab] 800 mg PO Q8HR PRN #30 tablet 08/23/20 Unknown Rx oxyCODONE /ACETAMINOPHEN [Percocet 1 tab PO Q4HR PRN #30 tab 08/23/20 Unknown Rx 5/325] ED Physical Exam - General Limitations: No Limitations General appearance: alert, in no apparent distress - Head Head exam: Present: atraumatic, normocephalic - Eye Eye exam: Present: normal appearance. Absent: conjunctival injection - Neck Neck exam: Present: normal inspection. Absent: tenderness - Respiratory Respiratory exam: Present: normal lung sounds bilaterally. Absent: respiratory distress, wheezes, rales, chest wall tenderness - Cardiovascular Cardiovascular Exam: Present: regular rate, normal heart sounds - GI/Abdominal GI/Abdominal exam: Present: soft, normal bowel sounds. Absent: distended, tenderness, guarding, rebound, rigid - Extremities Exam Extremities exam: Present: normal inspection - Back Exam Back exam: Present: normal inspection. Absent: CVA tenderness (R), CVA tenderne ss (L) - Neurological Exam Neurological exam: Present: alert, oriented X3 - Psychiatric Psychiatric exam: Present: normal affect - Skin Skin exam: Present: warm, dry, intact, normal color ED Course Vital Signs 11/22/21 09:23 Temperature 98.5 F Pulse Rate 66 Respiratory 18 Rate Blood Pressure 135/81 [Right] O2 Sat by Pulse 99 Oximetry ED Recheck MDM - Medical Decision Making 31-year-old black female presents to the emergency department for second methotrexate shot. Per previous note, patient was seen here on November 19 and diagnosed with ectopic . She went to the OR with [facility] did not receive first methotrexate shot. Per the [facility]'s note, patient was advised to return to the emergency department on today to receive her second methotrexate s hot. Patient denies abdominal pain and bleeding at this time. No acute distress noted. Patient was treated with methotrexate 96 mg IM x1 per advice on [facility] note and advised to follow-up on November [facility] and [facility] for repeat beta-hCG level. She was advised to return to the emergency department for any concerning symptoms. She verbalized understanding and agreement with plan of care. Critical care attestation.: If time is entered above; I have spent that time in minutes in the direct care of this critically ill patient, excluding procedure time. ED Disposition Clinical Impression: Ectopic Qualifiers: Location of ectopic : unspecified location Intrauterine status: unspecified Qualified Code(s): O00.90 - Unspecified ectopic without intrauterine Disposition: HOME / SELF CARE / HOMELESS Is pt being admited?: No Does the pt Need Aspirin: No Condition: Stable Instructions: Methotrexate Treatment for an Ectopic , Care After, Ectopic , [id number] Additional Instructions: [facility] on November 25 for repeat beta hCG level. Return to the emergency department for any concerning symptoms. Referrals: [facility] [Provider Group] - 3-5 Days Time of Disposition: 14:48
== END 2021-11-22 15:07 | disposition home or self-care (01) ==
LOC: ED 08:41
DX: O00.80 Other ectopic pregnancy without intrauterine pregnancy (principal); I10 Essential (primary) hypertension; F17.200 Nicotine dependence, unspecified, uncomplicated; Z3A.00 Weeks of gestation of pregnancy not specified
CPT/HCPCS: 96372; 99282; J9260